=== PATIENT | male | born 1970 | race Caucasian/White ===

== ENCOUNTER → 2022-08-01 | Outpatient (CLI) | payer OTHER | END | disposition home or self-care (01) | LOC: SHCH 14:17 | PROVIDERS: ATTEND Student in an Organized Health Care Education/Training Program | DX: R07.9 Chest pain, unspecified (principal) | CPT/HCPCS: 93306 ==

== ENCOUNTER → 2022-09-23 | Outpatient (CLI) | payer OTHER ==
[2022-09-23 12:21] LABS: ALBUMIN 3.7 g/dL (3.5-5.0); CREATININE 1.2 mg/dL (0.5-1.5); POTASSIUM 4.6 mmol/L (3.5-5.1); TOTAL PROTEIN, SERUM 7.6 g/dL (6.0-8.3)
== END | disposition home or self-care (01) ==
LOC: LAB 09:39
PROVIDERS: ATTEND Student in an Organized Health Care Education/Training Program
DX: I10 Essential (primary) hypertension (principal)
CPT/HCPCS: 36415; 80053

== ENCOUNTER → 2022-09-28 | Outpatient (CLI) | payer OTHER ==
[~2022-09-28] MED LIST: IOHEXOL 350 MG/ML 100ML INFUS..BTL IV ONE
== END | disposition home or self-care (01) ==
LOC: RAH 08:23 → EDUNIT# 09:00
PROVIDERS: ATTEND Student in an Organized Health Care Education/Training Program
DX: I25.10 Atherosclerotic heart disease of native coronary artery without angina pectoris (principal); R07.9 Chest pain, unspecified
CPT/HCPCS: 75574; Q9967

== ENCOUNTER 2022-10-20 05:45 | Day surgery (SDC) | payer OTHER ==
[2022-10-15 12:23] LABS: BASOPHILS % (AUTO) 0.3 % (0.0-5.0); EOSINOPHILS % (AUTO) 0.3 % (0.0-8.0); HEMATOCRIT 50.4 % (42-54); LYMPHOCYTES % (AUTO) 14.1 % (21.0-51.0); MEAN CORPUSCULAR HEMOGLOBIN 30.8 pg (27.0-33.0); MEAN CORPUSCULAR HGB CONC 32.3 g/dL (32.0-36.0); MEAN CORPUSCULAR VOLUME 95.3 fL (79-99); MONOCYTES % (AUTO) 5.6 % (3.0-13.0); NEUTROPHILS % (AUTO) 77.8 % (40.0-77.0); PLATELET COUNT (AUTO) 232 K/uL (130-400); RED BLOOD CELL COUNT(AUTO) 5.29 MIL/uL (4.50-6.20); RED CELL DISTRIBUTION WIDTH 13.9 % (11.0-15.5); WHITE BLOOD COUNT (AUTO) 11.9 K/uL (4.8-10.8)
[2022-10-15 12:25] VITALS: BP 131/83
[2022-10-15 12:38] LABS: INR 0.97 (0.85-1.15); PROTHROMBIN TIME 10.6 SEC (9.6-11.6)
[2022-10-15 12:40] LABS: PARTIAL THROMBOPLASTIN TIME 28.4 SEC (26.3-35.5); POTASSIUM 4.2 mmol/L (3.5-5.1)
[~2022-10-20] VITALS: Ht 188 cm; Wt 115.6 kg
[2022-10-20] VITALS (9 sets, daily range): BP systolic 102–127; BP diastolic 67–84
[~2022-10-20 05:45] MED LIST changes: +0.9% NACL 250ML 250 ML IV SCH; +ASPI-1443 PO; +ATOR40TA71 PO; -IOHEXOL 350 MG/ML 100ML INFUS..BTL IV ONE; +LISI40TA9 PO; +METO-408 PO
[2022-10-20] MEDS ORDERED: 0.9%NACL 1000ML 1,000 ML IV ONE (06:36)
[2022-10-20] MEDS ORDERED: LIDOCAINE HCL 400MG/20ML VIAL ONE (07:10)
[2022-10-20] MEDS ORDERED: NITROGLYCERIN 50MG VIAL ONE (07:11)
[2022-10-20] MEDS ORDERED: VERAPAMIL HCL 2.5 MG/ML VIAL ONE ×2 (07:11→08:19)
[2022-10-20] MEDS ORDERED: HEPARIN 10,000 UNIT/10ML (1,000 UNIT/ML) VIAL ONE (07:11)
[2022-10-20] MEDS ORDERED: IOHEXOL-350 75 ML VIAL IV ONE (07:11)
[2022-10-20] MEDS ORDERED: FENTANYL CITRATE PF 50 MCG/1 ML 2ML VIAL ONE (07:41)
[2022-10-20] MEDS ORDERED: MIDAZOLAM HCL 1 MG/ML 2ML VIAL ONE ×3 (07:41→08:20)
[2022-10-20] MEDS ORDERED: 0.9%NACL 1000ML 1,000 ML IV SCH (09:30)
[2022-10-20] MEDS ORDERED: GLUCAGON 1MG KIT 1 MG ML IM PRN (09:30)
[2022-10-20] MEDS ORDERED: DEXTROSE 50%-WATER 50 ML DISP.SYRIN IV PRN (09:30)
== END 2022-10-20 12:55 | disposition home or self-care (01) ==
LOC: DAH 05:45
PROVIDERS: ATTEND Student in an Organized Health Care Education/Training Program
DX: I25.119 Atherosclerotic heart disease of native coronary artery with unspecified angina pectoris (principal); I10 Essential (primary) hypertension; E78.5 Hyperlipidemia, unspecified; Z82.49 Family history of ischemic heart disease and other diseases of the circulatory system; Z87.891 Personal history of nicotine dependence; E66.8 Other obesity; Z68.33 Body mass index [BMI] 33.0-33.9, adult; Z79.01 Long term (current) use of anticoagulants; Z79.899 Other long term (current) drug therapy
CPT/HCPCS: 80048; 85025; 85610; 85730; 36415; 71045; 93005; 93458; C1769 ×3; C1894; C1887; J3010; J3490 ×4; J7030; J1644 ×3; J2250 ×3; Q9967; A4215; A4222; A4221; A4663; A4216; A4606; A4223 ×3; 93571; 96360; 96361; 99156; 99157